=== PATIENT | female | born 1965 | race Caucasian/White ===

== ENCOUNTER → 2017-02-14 | Outpatient (CLI) | payer MEDICAID ==
[~2017-02-14] MED LIST: CARAFATE1 GM PO; DULOXETINE60 MG PO; GABAPENTIN800 MG PO; HYDROCODONE-APA1 TA1 PO; LISINOPRIL-HCTZ 20-1 OR; LOVASTATIN20 MG PO; MELOXICAM7.5 MG PO; ONE DAILY WOMEN1 TAB PO; PANTOPRAZOLE SO40 M1 PO
--- NOTE | 2017-02-16 16:31 | RADIOLOGY REPORT PS360 ---
DIG MAMM-SCREEN TIRSO W/CAD CAD Screening ORDERING PHYSICIAN : Anup Bronson MD PATIENT AGE: 51 years GENDER: Female COMPARISON: Previous mammograms: February 2016 and July 2014 also November 2006 INDICATION: Routine screening TECHNIQUE: Standard CC and MLO images were obtained. R2 CAD reviewed. FINDINGS: Minimal fibroglandular elements bilateral with no significant new findings RIGHT BREAST: Stable appearance follow-up in one year LEFT BREAST: Stable appearance. Minimal fibrolinear elements most evident upper-outer quadrant left Been no significant new areas of concern. IMPRESSION: ---- . Stable bilateral mammogram Stable moderate asymmetry. No significant new findings.. Follow up one year recommended. BI-RADS CATEGORY: 2_Benign RECOMMENDED FOLLOWUP: 12M 12 MONTH FOLLOW-UP (A letter has been sent to the patient regarding results of the study.)
== END ==
LOC: RAD 08:25
DX: Z12.31 Encounter for screening mammogram for malignant neoplasm of breast (principal)
CPT/HCPCS: G0202